=== PATIENT | female | born 1975 | race Caucasian/White ===

== ENCOUNTER 2018-07-08 17:36 | Emergency (ER) | payer OTHER ==
[2018-07-08] MEDS ORDERED: Ibuprofen 600 MG Tab PO ONE (17:52)
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
== END 2018-07-08 18:40 | disposition home or self-care (01) ==
LOC: FB.ED 17:36
DX: G44.209 Tension-type headache, unspecified, not intractable (principal); Z88.0 Allergy status to penicillin; Z88.6 Allergy status to analgesic agent
CPT/HCPCS: 99283; A9270